=== PATIENT | female | born 1945 | race Caucasian/White ===

== ENCOUNTER 2017-05-30 12:03 | Emergency (ER) | payer MEDICARE ==
[2016-06-06 13:51] VITALS: BMI 20.2
[~2017-05-30 12:03] MED LIST: ACETAMINOPHEN500 M1 PO; ADVAIR HFA [SP]12 GM INH; ALEVE220 MG PO; ATARAX 25 MG TA25 MG PO; BACTRIM DS TABL1 TAB PO; BENADRYL 2% CRE30 GM TOPICAL; CALMOSEPTINE OI71 GM TOPICAL; CELEXA20 MG PO; CELEXA40 MG PO; DEXAMETHASONE4 MG/ML IV; DIFLUCAN100 MG PO; DILAUDID 012 MG/30 M IV; DURAGESIC1 PATCH .7 TRANSDERM; GRANIX300 MCG/0. SC; HYDROCODON-ACE1 EAC7 PO; IBUPROFEN600 MG PO; IPRAT-ALBUT 0.5-3 ML UPD; K-DUR20 MEQ PO; KLONOPIN1 MG PO; LEVAQUIN500 MG PO; LOVENOX40 MG/0.4 SC; NORVASC5 MG PO; NYSTATIN ORAL SU5 ML PO; PHENERGAN25 M1 PO; PREDNISONE20 MG PO; PROTONIX40 MG PO; SPIRIVA18 MCG INH; SYMBICORT 16010.2 GM INH; TUDORZA PRESS400 MCG INH; XANAX0.25 MG PO
== END 2017-05-30 15:20 | disposition home or self-care (01) ==
LOC: D.CT 12:03 → D.ER 12:03 → EDSTATUS 14:00 → D.CT 14:00 → D.ER 15:20
DX: R06.00 Dyspnea, unspecified (principal); R42 Dizziness and giddiness; R51 Headache; J44.9 Chronic obstructive pulmonary disease, unspecified

== ENCOUNTER 2018-04-25 05:12 | Inpatient (IN) | payer MEDICARE ==
[~2018-04-25] VITALS: Ht 162.6 cm; Wt 63.6 kg
--- NOTE | ~2018-04-25 | OP ---
PATIENT NAME: BARTOLO TAFOYA MEDICAL RECORD: [id number] :44 LOCATION:D.MS Monique2227 ADMISSION DATE:04/29/18 SURGEON: ARETHA FORTE MD DATE OF OPERATION: 04/25/2018 PREOPERATIVE DIAGNOSIS: Lumbar spinal stenosis at left L3-L4 and L4-L5. PROCEDURE: Left L3-L4 and L4-L5 lumbar laminotomy, foraminotomy and medial facetectomy. DESCRIPTION AND TECHNIQUE: After induction of general endotracheal anesthesia, the patient was rolled prone on a Huey frame. The lumbar spine was prepped and draped in usual sterile fashion. Fluoroscopic x-ray and spinal needle localized the L3-L4 interspace on the left side. A stab incision was carried out with #11 blade. A METRx retractor was advanced at the L3-L4 interspace on the left side. The level was confirmed with fluoroscopic x-ray. A microscope and Midas Heri drill were used to perform laminotomy, medial facetectomy and foraminotomy at L3-L4 on the left. Hypertrophied ligamentum flavum was removed with Cloward rongeurs. Next, the retractor was directed inferiorly to the L4-L5 interspace. A microscope and Midas Heri drill were used for laminotomy, medial facetectomy and foraminotomy at L4-L5 on the left side. Hypertrophied ligamentum flavum was removed with Cloward rongeurs. Following this, the foraminotomies were carried out with a Cloward rongeur. Hypertrophied ligamentum flavum was removed with Cloward rongeurs. The dura was decompressed well. Meticulous hemostasis was maintained throughout the wound. The wound was irrigated with copious amounts of Ancef irrigant solution. The fascia was closed with 2-0 Vicryl suture, the subdermal layer was closed with 3-0 Vicryl suture. The skin was closed with mulu. A sterile dressing was applied to the wound. The patient was awakened in good condition and taken to recovery. All counts were reported as correct. Estimated blood loss was minimal. Edited for date of surgery; EDMOND 06/16/18 TRANSINT:[id number] Voice Confirmation ID: [id number] DOCUMENT ID: [id number] ARETHA FORTE MD at 4751 CC: [id number] DICTATION DATE: 05/29/181939 COMMUNICATION AND OUTREACH MANAGER: 05/30/18 0705 DIS IN 05/02/18 [place] [id number] [place] [id number]
--- NOTE | ~2018-04-25 | OP ---
PATIENT NAME: BARTOLO TAFOYA MEDICAL RECORD: [id number] :44 LOCATION:D.MS Monique2227 ADMISSION DATE:04/29/18 SURGEON: ARETHA NAIK MD DATE OF OPERATION: 04/29/2018 PREOPERATIVE DIAGNOSIS: Right foot drop, recurrent epidural fluid collection with possible epidural abscess, wound infection. POSTOPERATIVE DIAGNOSIS: PROCEDURE: Exploration of Lumbar laminectomy wound with redo right L3-L4 and 5, lumbar laminectomy. SURGEON: Aretha Naik MD DESCRIPTION AND TECHNIQUE: After induction of general endotracheal anesthesia, the patient was rolled prone on a Huey frame. Lumbar spine was prepped and draped in usual sterile fashion. Fluoroscopic x-ray and spinal needle localized at L3-L4 interspace. Previous incision was opened with a Metzenbaum scissors. The fascia was also opened with Metzenbaum scissors. The L3-L4 interspace was confirmed with fluoroscopic x-ray. A Midas Heri drill was used to extend the previous laminotomy and foraminotomy and laminectomy was carried out at L3 and then at L4 and then also at L5. The lateral gutters were completely cleared of any residual ligamentum flavum. There was an epidural collection of soft tissue appeared to be granulation tissue. This was cultured and sent to microbiology for culture. Following this, the dura was decompressed well. Foraminotomies were carried out at L3-L4 and L4-L5 on the right. The fascia was closed with 2-0 Vicryl suture. The subdermal layer closed with 3-0 Vicryl suture. The skin was closed with mulu. A sterile dressing was applied to the wound. The patient was awakened in good condition and taken to recovery. All counts were reported as correct. Estimated blood loss was minimal. Edited for surgery date; EDMOND 06/16/18 TRANSINT:[id number] Voice Confirmation ID: [id number] DOCUMENT ID: [id number] ARETHA NAIK MD at 1802 CC: [id number] DICTATION DATE: 05/29/181936 INTERACTIVE MEDIA MARKETING DIRECTOR: 05/30/18 0645 DIS IN 05/02/18 [place] [address]
[2018-04-25 06:21] LABS: CALC OSMOLALITY 277 mosm/kg (275-300); CARBON DIOXIDE 30.4 mmol/L (21.0-32.0); CHLORIDE - SERUM 104 mmol/L (98-107); CREATININE - SERUM 0.7 mg/dL (0.6-1.3); GLUCOSE 84 mg/dL (74-106); POTASSIUM - SERUM 3.8 mmol/L (3.5-5.1); SODIUM 140 mmol/L (136-145); UREA NITROGEN 13 mg/dL (7-18); eGFR NON AFRICAN AMERICAN 87 mL/min (90-120)
[2018-04-25 06:26] VITALS: BP 139/69; BMI 24.0
[2018-04-25] MEDS ORDERED: CLONAZEPAM1 MG/TAB PO (07:04)
[2018-04-25] MEDS ORDERED: KEFLEX250 MG PO (07:06)
[2018-04-25] MEDS ORDERED: ZOLOFT100 MG PO (07:07)
[2018-04-25] MEDS ORDERED: DULERA 200 MCG8.8 GM INH (07:07)
[2018-04-25 18:26] VITALS: BP 110/63; Ht 162.6 cm; Wt 63.6 kg
[2018-04-25 18:36] LABS: BASOPHILS 0.3 % (0-2); EOSINOPHILS 2.1 % (0-7); HEMATOCRIT 43.1 % (36.0-48.0); HEMOGLOBIN 13.8 g/dL (12-16); IMMATURE GRANULOCYTES 0.5 % (0-5); LYMPHOCYTES 26.1 % (15-50); MCH 28.5 pg (26.0-34.0); MEAN PLATELET VOLUME 11.7 fL (7.4-10.4); MONOCYTES 7.7 % (2-11); NEUTROPHILS 63.3 % (40-80); PLATELET COUNT 168 10x3/uL (130-400); RBC 4.84 10x6/uL (4.00-5.40); RDW 15.3 % (11.5-14.5); WBC 7.7 10x3/uL (4.8-10.8)
[2018-04-25 21:17] VITALS: BP 123/66
[2018-04-26 04:50] VITALS: BP 93/54
[2018-04-26 08:28] VITALS: BP 125/58
[2018-04-26 12:36] VITALS: BP 122/62
[2018-04-26 16:00] VITALS: BP 121/72
[2018-04-26 22:37] VITALS: BP 130/68
[2018-04-27 04:06] VITALS: BP 136/84
[2018-04-27 08:23] VITALS: BP 141/58
[2018-04-27] MEDS ORDERED: PERCOCET 10/3251 TA1 PO (11:39)
[2018-04-27 12:33] VITALS: BP 126/74
[2018-04-27 16:05] VITALS: BP 125/70
[2018-04-27 22:41] VITALS: BP 137/75
[2018-04-28 03:58] VITALS: BP 145/74
[2018-04-28 08:48] VITALS: BP 120/85
[2018-04-28 13:28] VITALS: BP 139/73
[2018-04-28 16:51] VITALS: BP 140/59
[2018-04-28 19:47] VITALS: BP 162/98
[2018-04-28 23:14] VITALS: BP 153/84
[2018-04-29 03:27] VITALS: BP 154/77
[2018-04-29 07:58] VITALS: BP 146/77
[2018-04-29 12:23] VITALS: BP 131/65
[2018-04-29 15:54] VITALS: BP 141/57
[2018-04-29 20:13] VITALS: BP 119/49
[2018-04-30 00:30] VITALS: BP 139/72
[2018-04-30 03:42] VITALS: BP 130/79
[2018-04-30 07:54] VITALS: BP 147/82
[2018-04-30 12:18] VITALS: BP 144/61
[2018-04-30 15:44] VITALS: BP 142/61
[2018-04-30 20:04] VITALS: BP 112/40
[2018-05-01 01:23] VITALS: BP 124/64
[2018-05-01 04:10] VITALS: BP 134/74
[2018-05-01 09:31] VITALS: BP 137/71
[2018-05-01 16:44] VITALS: BP 137/64
[2018-05-02 06:50] VITALS: BP 159/86
[2018-05-02 09:01] VITALS: BP 127/61
[2018-05-02 13:45] VITALS: BP 148/94
[2018-05-02] MEDS ORDERED: MEDROL DOSE PACK4 MG PO (15:29)
[2018-05-02 16:09] VITALS: BP 132/77
== END 2018-05-02 16:24 | DRG 941 ==
LOC: D.MS 05:12 → D.OPS 05:12 → D.PAN 07:30 → D.MS 16:41 → D.OPS 16:42 → D.MS 16:42 → OBSVTIME 16:42 → D.OPS 04-29 08:32 → D.MS 04-29 08:32
PROVIDERS: Anesthesiology; Neurological Surgery
PROC: 01NB0ZZ Release Lumbar Nerve, Open Approach (ICD-10-PCS; principal; 2018-04-25 07:30)
PROC: 01NB0ZZ Release Lumbar Nerve, Open Approach (ICD-10-PCS; 2018-04-29)
DX: G89.18 Other acute postprocedural pain (principal); M79.661 Pain in right lower leg; M62.830 Muscle spasm of back; M48.061 Spinal stenosis, lumbar region without neurogenic claudication; M21.371 Foot drop, right foot

== ENCOUNTER 2018-05-02 14:35 | Inpatient (IN) | payer MEDICARE ==
[~2018-05-02] VITALS: Ht 162.6 cm; Wt 64.0 kg
--- NOTE | ~2018-05-02 | RHP ---
PATIENT: BARTOLO TAFOYA MEDICAL RECORD: [id number] ACCOUNT: [id number] LOCATION:[facility]1117 : 44 ADMISSION DATE: 05/02/18 REHABILITATION HISTORY AND PHYSICAL EXAMINATION POST ADMISSION PHYSICIAN EXAMINATION ADMITTING DIAGNOSES: Spinal stenosis of L3-L4, L4-L5 and lumbar radiculopathy HISTORY OF PRESENT ILLNESS: The patient is a 72-year-old female patient admitted to inpatient rehab for neurological condition, spinal stenosis with lumbar radiculopathy. She is status post kyphoplasty at T11, L4-L5 on 04/11/2018. She returned to the office for followup and had increasing pain, weakness and paresthesias in both legs that were not improved and was progressing daily. Pain was exacerbated by standing. X-rays were positive for spinal stenosis at L3-L4 and L4-L5 with radiculopathy on 04/25/2018. She went to the OR for a lumbar laminectomy. Postop, she was unable to work with physical therapy due to irretractable pain, muscle spasms and numbness of her right foot. MRI of her lumbar spine showed extensive multilevel degenerative changes in the lumbar spine, most pronounced at L3-L4 and L4-L5 where there was severe thecal sac narrowing, gujmwinm-rg-uyysua neural foraminal narrowing as detailed above, interval worsening of the thecal sac, narrowing since previous exam, remote L4 compression deformity and retropulsion of bone contributing to a thecal sac narrowing. On 04/29/2018, she was taken back to the OR for a right L3-L4 lumbar laminectomy. Currently, she has continued to complain of severe pain and muscle spasm. She has been on IV Decadron 8 mg every 6 hours, muscle relaxers, p.o. pain meds and a Duragesic patch. She is eezwqbtp-yq-enj assist for ADLs and mobility. She is max assist for qwm-jw-cojiu and qwk-hn-ebfby. She ambulated 2 feet with PT, using a gait belt, rolling walker and 75% assist due to poor balance. Previously, she was independent with ADLs and mobility. She lives with her and is highly motivated to regain her strength and hopefully return back home at her prior level of functioning. COMORBIDITIES: In this patient include status post lumbar laminectomy, irretractable back pain, paresthesias, weakness, numbness, liver mets, pelvic mass, neuropathy, COPD, asthma, home O2 dependence, fatigue, generalized weakness, stress incontinence, depression, anxiety, osteoporosis and gastroesophageal reflux disease. PAST MEDICAL HISTORY: Significant for CVA, numbness, vertigo, weakness, asthma, COPD, home O2 dependent, stress incontinence, history of UTI, depression and anxiety. PAST SURGICAL HISTORY: Includes , nose surgery, knee surgery and laminectomy times 2. ALLERGIES: No known drug allergies. CURRENT MEDICATIONS: She is on a tapering dose of steroids. She is on Zoloft 100 mg daily, polyethylene glycol 17 grams in 8 ounce of water daily, [place] 5/325 one tab every 6 hours p.r.n., Advair HFA 2 puffs b.i.d., clonazepam 1 mg b.i.d., Keflex 250 mg every 6 hours and Tylenol 500 mg every 4 hours p.r.n. headache. HABITS: No alcohol or tobacco use. HISTORY AND PHYSICAL [id number] BARTOLO TAFOYA FAMILY HISTORY: Noncontributory. SOCIAL HISTORY: The patient hopes to return back home and get back to her prior level of function. REVIEW OF SYSTEMS: GENERAL: Denies cold, cough, or congestion. CARDIOVASCULAR: Denies any chest pain. LUNGS: Denies any shortness of breath. PHYSICAL EXAMINATION: VITAL SIGNS: Stable, afebrile. GENERAL: Elderly female, in no acute distress, alert upon exam. HEENT: Normocephalic and atraumatic. Mucosa moist. NECK: Supple, with no lymphadenopathy. LUNGS: Clear at this time. HEART: Regular rate and rhythm. ABDOMEN: Benign. EXTREMITIES: He does have noted weakness and pain with movement of her lower extremities. NEUROLOGIC: As above. LABORATORY DATA: Her white count is 18.5 secondary to steroids. Her hemoglobin is 14.6, hematocrit is 45.3 and platelet count is 189. Sodium 140, potassium 3.9, BUN and creatinine of 19 and 0.6 and blood sugar is noted to be 85. ASSESSMENT: This 72-year-old female patient admitted to rehab with a working diagnosis of a spinal cord dysfunction, status post laminectomy. The patient has potential to make improvement. We instituted the following multidisciplinary therapies including, but not limited to physical, occupational, respiratory, speech, nutritional services, prosthetics and orthotics. Given her complex medical condition and risks for more complications, rehabilitation services cannot be provided at a low level of care such as intermediate facility. PLAN: 1. Admit to [facility] for intensive inpatient therapy to include the following disciplines: A. Physical therapy to improve gait, all transfer skills and bed mobility to a modified independent level. B. Occupational therapy to a modified independent level. C. Case management to assist with discharge planning and placement options. D. Nutrition to assist with nutritional needs. E. Rehabilitation nursing to assist in monitoring the patient's underlying medical conditions and to assist with any type of bowel or bladder management. 2. The patient's current medication and medical care will be continued. 3. Placed on standard fall precautions. 4. The patient's estimated length of stay is approximately 7 to 10 days. 5. We will discuss this patient during care team staff meeting this week. TRANSINT:[id number] Voice Confirmation ID: [id number] DOCUMENT ID: [id number] KARIS notes whether there has been none or any medical/functional change since admission: HISTORY AND PHYSICAL [id number] BARTOLO TAFOYA - No change sine the PAS KARIS attests patient continues to be appropriate for IRF: - Remains appropriate for the IRF DAX KAM MD at 1757 CC: [id number] DICTATION DATE: 05/03/18 1727 PROFESSOR OF VISUAL ARTS: 05/03/18 1828 DIS IN 05/12/18 [facility] [address] [place] [address]
[~2018-05-02 14:35] MED LIST changes: +CLONAZEPAM1 MG/TAB PO; +DULERA 200 MCG8.8 GM INH; +KEFLEX250 MG PO; +PERCOCET 10/3251 TA1 PO; +ZOLOFT100 MG PO
[2018-05-02] MEDS ORDERED: MEDROL DOSE PACK4 MG PO (15:29)
[2018-05-02 17:52] VITALS: BP 144/74; BMI 24.2
[2018-05-02 19:00] VITALS: BP 144/74
[2018-05-03 07:03] LABS: BASOPHILS 0.2 % (0-2); EOSINOPHILS 0 % (0-7); HEMATOCRIT 45.3 % (36.0-48.0); HEMOGLOBIN 14.6 g/dL (12-16); IMMATURE GRANULOCYTES 5.3 % (0-5); LYMPHOCYTES 5.3 % (15-50); MCH 28.6 pg (26.0-34.0); MCHC 32.2 g/dL (31.0-37.0); MCV 88.8 fL (80.0-100.0); MEAN PLATELET VOLUME 11.1 fL (7.4-10.4); MONOCYTES 13.1 % (2-11); NEUTROPHILS 76.1 % (40-80); PLATELET COUNT 189 10x3/uL (130-400); RDW 15.4 % (11.5-14.5); WBC 18.5 10x3/uL (4.8-10.8)
[2018-05-03 07:12] LABS: CALC OSMOLALITY 279 mosm/kg (275-300); CALCIUM 8.4 mg/dL (8.5-10.1); CARBON DIOXIDE 37.2 mmol/L (21.0-32.0); CHLORIDE - SERUM 101 mmol/L (98-107); CREATININE - SERUM 0.6 mg/dL (0.6-1.3); GLUCOSE 85 mg/dL (74-106); POTASSIUM - SERUM 3.9 mmol/L (3.5-5.1); SODIUM 140 mmol/L (136-145); UREA NITROGEN 19 mg/dL (7-18); eGFR NON AFRICAN AMERICAN > 90 mL/min (90-120)
[2018-05-03 13:30] VITALS: Ht 162.6 cm; Wt 64.0 kg
[2018-05-04 01:13] VITALS: BP 115/60
[2018-05-04 08:00] VITALS: BP 108/68
[2018-05-04 21:00] VITALS: BP 114/62
[2018-05-05 07:28] LABS: BASOPHILS 0.6 % (0-2); EOSINOPHILS 0.2 % (0-7); HEMATOCRIT 43.4 % (36.0-48.0); HEMOGLOBIN 13.6 g/dL (12-16); LYMPHOCYTES 9.4 % (15-50); MCHC 31.3 g/dL (31.0-37.0); MCV 89.5 fL (80.0-100.0); MEAN PLATELET VOLUME 10.7 fL (7.4-10.4); MONOCYTES 6.7 % (2-11); NEUTROPHILS 72.1 % (40-80); RBC 4.85 10x6/uL (4.00-5.40); RDW 15.9 % (11.5-14.5); WBC 12.9 10x3/uL (4.8-10.8)
[2018-05-05 07:34] LABS: PLATELET COUNT 150 10x3/uL (130-400)
[2018-05-05 07:45] LABS: CALC OSMOLALITY 279 mosm/kg (275-300); CALCIUM 8.6 mg/dL (8.5-10.1); CARBON DIOXIDE 35.7 mmol/L (21.0-32.0); CHLORIDE - SERUM 100 mmol/L (98-107); CREATININE - SERUM 0.6 mg/dL (0.6-1.3); GLUCOSE 104 mg/dL (74-106); POTASSIUM - SERUM 4.4 mmol/L (3.5-5.1); SODIUM 140 mmol/L (136-145); UREA NITROGEN 16 mg/dL (7-18); eGFR NON AFRICAN AMERICAN > 90 mL/min (90-120)
[2018-05-05 08:23] VITALS: BP 142/51
[2018-05-05 19:00] VITALS: BP 132/60
[2018-05-06 08:28] VITALS: BP 112/58
[2018-05-06 19:00] VITALS: BP 144/79
[2018-05-07 07:00] LABS: BASOPHILS 0.2 % (0-2); EOSINOPHILS 0.7 % (0-7); HEMATOCRIT 43.5 % (36.0-48.0); HEMOGLOBIN 13.7 g/dL (12-16); LYMPHOCYTES 8.8 % (15-50); MCH 28.4 pg (26.0-34.0); MCHC 31.5 g/dL (31.0-37.0); MCV 90.1 fL (80.0-100.0); MEAN PLATELET VOLUME 10.3 fL (7.4-10.4); MONOCYTES 6.8 % (2-11); NEUTROPHILS 76.5 % (40-80); PLATELET COUNT 144 10x3/uL (130-400); RBC 4.83 10x6/uL (4.00-5.40); RDW 16.2 % (11.5-14.5)
[2018-05-07 07:04] LABS: WBC 16.5 10x3/uL (4.8-10.8)
[2018-05-07 07:25] LABS: CALC OSMOLALITY 281 mosm/kg (275-300); CALCIUM 8.5 mg/dL (8.5-10.1); CARBON DIOXIDE 36.5 mmol/L (21.0-32.0); CHLORIDE - SERUM 101 mmol/L (98-107); CREATININE - SERUM 0.6 mg/dL (0.6-1.3); GLUCOSE 105 mg/dL (74-106); POTASSIUM - SERUM 4.2 mmol/L (3.5-5.1); SODIUM 141 mmol/L (136-145); UREA NITROGEN 15 mg/dL (7-18); eGFR NON AFRICAN AMERICAN > 90 mL/min (90-120)
[2018-05-07 08:19] VITALS: BP 130/61
[2018-05-07 19:00] VITALS: BP 134/62
[2018-05-08 08:25] VITALS: BP 136/64
[2018-05-08 19:00] VITALS: BP 121/75
[2018-05-09 06:16] LABS: BASOPHILS 0.1 % (0-2); EOSINOPHILS 1.4 % (0-7); HEMATOCRIT 41.7 % (36.0-48.0); HEMOGLOBIN 12.8 g/dL (12-16); IMMATURE GRANULOCYTES 6.2 % (0-5); LYMPHOCYTES 7.4 % (15-50); MCH 27.9 pg (26.0-34.0); MCHC 30.7 g/dL (31.0-37.0); MEAN PLATELET VOLUME 10.9 fL (7.4-10.4); MONOCYTES 7.6 % (2-11); NEUTROPHILS 77.3 % (40-80); PLATELET COUNT 142 10x3/uL (130-400); RBC 4.58 10x6/uL (4.00-5.40); RDW 16.7 % (11.5-14.5); WBC 13.9 10x3/uL (4.8-10.8)
[2018-05-09 07:05] LABS: CALC OSMOLALITY 291 mosm/kg (275-300); CALCIUM 8.6 mg/dL (8.5-10.1); CARBON DIOXIDE 34.3 mmol/L (21.0-32.0); CHLORIDE - SERUM 103 mmol/L (98-107); CREATININE - SERUM 0.6 mg/dL (0.6-1.3); GLUCOSE 110 mg/dL (74-106); POTASSIUM - SERUM 4.1 mmol/L (3.5-5.1); SODIUM 144 mmol/L (136-145); eGFR NON AFRICAN AMERICAN > 90 mL/min (90-120)
[2018-05-09 07:07] LABS: UREA NITROGEN 24 mg/dL (7-18)
[2018-05-09 08:14] VITALS: BP 121/68
[2018-05-09 19:00] VITALS: BP 137/63
[2018-05-10 08:00] VITALS: BP 121/70
[2018-05-10 19:58] VITALS: BP 133/75
[2018-05-11 10:07] VITALS: BP 118/70
[2018-05-11 20:00] VITALS: BP 109/76
[2018-05-12 07:06] LABS: BASOPHILS 0.2 % (0-2); EOSINOPHILS 2.4 % (0-7); HEMATOCRIT 40.5 % (36.0-48.0); HEMOGLOBIN 12.6 g/dL (12-16); IMMATURE GRANULOCYTES 6.1 % (0-5); LYMPHOCYTES 13.6 % (15-50); MCH 28.6 pg (26.0-34.0); MCHC 31.1 g/dL (31.0-37.0); MCV 91.8 fL (80.0-100.0); MONOCYTES 7.3 % (2-11); NEUTROPHILS 70.4 % (40-80); PLATELET COUNT 140 10x3/uL (130-400); RBC 4.41 10x6/uL (4.00-5.40); RDW 16.3 % (11.5-14.5); WBC 6.2 10x3/uL (4.8-10.8)
[2018-05-12 07:23] LABS: CALC OSMOLALITY 281 mosm/kg (275-300); CALCIUM 8.3 mg/dL (8.5-10.1); CARBON DIOXIDE 30.7 mmol/L (21.0-32.0); CHLORIDE - SERUM 104 mmol/L (98-107); CREATININE - SERUM 0.6 mg/dL (0.6-1.3); GLUCOSE 112 mg/dL (74-106); POTASSIUM - SERUM 3.3 mmol/L (3.5-5.1); SODIUM 142 mmol/L (136-145); UREA NITROGEN 7 mg/dL (7-18); eGFR NON AFRICAN AMERICAN > 90 mL/min (90-120)
[2018-05-12 08:00] VITALS: BP 118/71
[2018-05-12 19:00] VITALS: BP 105/67
[2018-05-12] MEDS ORDERED: ROBAXIN500 MG PO ×2 (19:16→23:02)
[2018-05-12] MEDS ORDERED: VOLTAREN100 GM TOPICAL (19:16)
[2018-05-12] MEDS ORDERED: NEURONTIN 300300 MG PO (19:17)
[2018-05-12] MEDS ORDERED: MELATONIN 3 MG1 TAB PO ×2 (19:18→23:00)
[2018-05-12] MEDS ORDERED: PERCOCET 10/3251 TA1 PO (19:19)
[2018-05-12] MEDS ORDERED: FLORAJEN3 CAPS460 MG PO (22:59)
[2018-05-12] MEDS ORDERED: K-DUR20 MEQ PO (23:03)
[2018-05-12] MEDS ORDERED: IMODIUM2 MG PO (23:08)
[2018-05-12] MEDS ORDERED: MIRALAX17 GM PO (23:56)
[2018-05-13] MEDS ORDERED: CLEOCIN HCL150 MG PO (00:03)
[2018-05-13] MEDS ORDERED: KLONOPIN0.5 MG PO (00:04)
== END 2018-05-12 21:45 | disposition short-term general hospital (02) | DRG 560 ==
LOC: D.REHAB 14:35 → D.SDCHOLD 05-06 11:25 → D.REHAB 05-06 11:30
PROVIDERS: Emergency Medicine
DX: Z47.89 Encounter for other orthopedic aftercare (principal); C78.7 Secondary malignant neoplasm of liver and intrahepatic bile duct; M54.16 Radiculopathy, lumbar region; M48.061 Spinal stenosis, lumbar region without neurogenic claudication; Z98.890 Other specified postprocedural states; R20.2 Paresthesia of skin; R53.1 Weakness; R20.0 Anesthesia of skin; R19.00 Intra-abdominal and pelvic swelling, mass and lump, unspecified site; G62.9 Polyneuropathy, unspecified; J44.9 Chronic obstructive pulmonary disease, unspecified; Z99.81 Dependence on supplemental oxygen; R53.83 Other fatigue; N39.3 Stress incontinence (female) (male); F41.8 Other specified anxiety disorders; M81.0 Age-related osteoporosis without current pathological fracture; K21.9 Gastro-esophageal reflux disease without esophagitis; M21.371 Foot drop, right foot

== ENCOUNTER 2018-05-12 21:26 | Inpatient (IN) | payer MEDICARE ==
[~2018-05-12] VITALS: Ht 162.6 cm; Wt 63.5 kg
--- NOTE | ~2018-05-12 | OP ---
PATIENT NAME: BARTOLO TAFOYA MEDICAL RECORD: [id number] :44 LOCATION:D.MS Monique2238 ADMISSION DATE:05/12/18 SURGEON: ARETHA FORTE MD DATE OF OPERATION: 05/16/2018 PREOPERATIVE DIAGNOSES: Epidural mass at L3-L4 and lumbar spinal stenosis at L3, L4 and L5 with foraminal stenosis. POSTOPERATIVE DIAGNOSIS: Epidural mass at L3-L4 and lumbar spinal stenosis at L3, L4 and L5 with foraminal stenosis. PROCEDURES: Lumbar laminectomy at L3, L4, and L5 with sublaminar decompression and foraminotomies at L3-L4, L4-L5, and L5, culture of epidural fluid collection. DESCRIPTION AND TECHNIQUE: After induction of general endotracheal anesthesia, the patient's L3-L4 interspace was confirmed with fluoroscopic x-ray and a spinal needle. The previous incision was incised with Metzenbaum scissors and then the fascia was incised with Bovie cautery. Subperiosteal dissection was used to expose the spinous processes and laminae of L3, L4, and L5. The L3, L4 and L5 was exposed was confirmed with fluoroscopic x-ray. A Midas-Heri drill and microscope was used to do a formal laminectomy at L3, L4 and L5 on the right side. There is an epidural mass, which appeared to be granulation tissue, was cultured and was removed with microdissection with Cloward rongeurs and microinstruments. Following this, the dura was decompressed well at L3, L4, and L5, sublaminar decompression took place on the opposite side after undermining the spinous processes at L4 and L5. The dura appeared to have decompressed well. Meticulous hemostasis was maintained throughout. The wound was irrigated with copious amounts of Ancef irrigant solution. The fascia was closed with 2-0 Vicryl suture. Subdermal layer was closed with 3-0 Vicryl suture. Skin was closed with mulu. A sterile dressing was applied to the wound. The patient was awakened in good condition and taken to the recovery. All counts were reported as correct. Estimated blood loss was minimal. TRANSINT:[id number] Voice Confirmation ID: [id number] DOCUMENT ID: [id number] ARETHA FORTE MD at 0952 CC: [id number] DICTATION DATE: 05/16/181953 SENIOR TECH MANUFACTURING ENGINEERING: 05/16/18 2334 ADM IN [facility] [address] [place] [address]
[~2018-05-12 21:26] MED LIST changes: +MEDROL DOSE PACK4 MG PO; +MELATONIN 3 MG1 TAB PO; +NEURONTIN 300300 MG PO; +ROBAXIN500 MG PO; +VOLTAREN100 GM TOPICAL
[2018-05-12] MEDS ORDERED: FLORAJEN3 CAPS460 MG PO (22:59)
[2018-05-12] MEDS ORDERED: MELATONIN 3 MG1 TAB PO (23:00)
[2018-05-12] MEDS ORDERED: ROBAXIN500 MG PO (23:02)
[2018-05-12] MEDS ORDERED: K-DUR20 MEQ PO (23:03)
[2018-05-12] MEDS ORDERED: IMODIUM2 MG PO (23:08)
[2018-05-12] MEDS ORDERED: MIRALAX17 GM PO (23:56)
[2018-05-13] MEDS ORDERED: CLEOCIN HCL150 MG PO (00:03)
[2018-05-13] MEDS ORDERED: KLONOPIN0.5 MG PO (00:04)
[2018-05-13 02:02] VITALS: BP 107/50; BMI 24.0
[2018-05-13 04:58] VITALS: BP 132/60
[2018-05-13 08:39] VITALS: BP 131/55
[2018-05-13 09:12] LABS: BASOPHILS 0.1 % (0-2); EOSINOPHILS 2.1 % (0-7); HEMATOCRIT 38.1 % (36.0-48.0); HEMOGLOBIN 11.7 g/dL (12-16); IMMATURE GRANULOCYTES 3.5 % (0-5); LYMPHOCYTES 11.2 % (15-50); MCHC 30.7 g/dL (31.0-37.0); MCV 91.1 fL (80.0-100.0); MEAN PLATELET VOLUME 10.2 fL (7.4-10.4); MONOCYTES 8.3 % (2-11); NEUTROPHILS 74.8 % (40-80); PLATELET COUNT 129 10x3/uL (130-400); RBC 4.18 10x6/uL (4.00-5.40)
[2018-05-13 10:43] LABS: ALBUMIN 2.8 g/dL (3.4-5.0); ALKALINE PHOSPHATASE 62 U/L (46-116); ALT (SGPT) 49 U/L (10-68); BILIRUBIN - TOTAL 0.26 mg/dL (0.2-1.3); CALC OSMOLALITY 285 mosm/kg (275-300); CALCIUM 8.1 mg/dL (8.5-10.1); CARBON DIOXIDE 34.9 mmol/L (21.0-32.0); CHLORIDE - SERUM 105 mmol/L (98-107); CREATININE - SERUM 0.6 mg/dL (0.6-1.3); GLUCOSE 88 mg/dL (74-106); PROTEIN - SERUM 5.8 g/dL (6.4-8.2); SODIUM 145 mmol/L (136-145); UREA NITROGEN 8 mg/dL (7-18); eGFR NON AFRICAN AMERICAN > 90 mL/min (90-120)
[2018-05-13 10:45] LABS: POTASSIUM - SERUM 3.9 mmol/L (3.5-5.1)
[2018-05-13 13:02] VITALS: BP 132/61
[2018-05-13 15:21] VITALS: Ht 162.6 cm; Wt 63.5 kg
[2018-05-13 16:37] VITALS: BP 130/60
[2018-05-13 23:19] VITALS: BP 148/78
[2018-05-14 03:40] VITALS: BP 143/64
[2018-05-14 06:15] LABS: BASOPHILS 0.2 % (0-2); HEMATOCRIT 35.8 % (36.0-48.0); HEMOGLOBIN 11.2 g/dL (12-16); IMMATURE GRANULOCYTES 2.7 % (0-5); LYMPHOCYTES 14.5 % (15-50); MCH 28.1 pg (26.0-34.0); MCHC 31.3 g/dL (31.0-37.0); MCV 89.7 fL (80.0-100.0); MEAN PLATELET VOLUME 9.8 fL (7.4-10.4); MONOCYTES 9.5 % (2-11); NEUTROPHILS 71.1 % (40-80); PLATELET COUNT 124 10x3/uL (130-400); RBC 3.99 10x6/uL (4.00-5.40); RDW 16.1 % (11.5-14.5)
[2018-05-14 06:39] LABS: WBC 5.9 10x3/uL (4.8-10.8)
[2018-05-14 06:55] LABS: ALBUMIN 2.6 g/dL (3.4-5.0); ALKALINE PHOSPHATASE 56 U/L (46-116); ALT (SGPT) 38 U/L (10-68); BILIRUBIN - TOTAL 0.24 mg/dL (0.2-1.3); CALC OSMOLALITY 288 mosm/kg (275-300); CALCIUM 8.5 mg/dL (8.5-10.1); CARBON DIOXIDE 32.4 mmol/L (21.0-32.0); CHLORIDE - SERUM 106 mmol/L (98-107); CREATININE - SERUM 0.6 mg/dL (0.6-1.3); GLUCOSE 120 mg/dL (74-106); POTASSIUM - SERUM 3.8 mmol/L (3.5-5.1); PROTEIN - SERUM 6.1 g/dL (6.4-8.2); SODIUM 145 mmol/L (136-145); UREA NITROGEN 9 mg/dL (7-18); eGFR NON AFRICAN AMERICAN > 90 mL/min (90-120)
[2018-05-14 08:04] VITALS: BP 133/73
[2018-05-14 13:24] VITALS: BP 130/61
[2018-05-14 16:40] VITALS: BP 132/75
[2018-05-14 20:32] VITALS: BP 146/69
[2018-05-15 00:38] VITALS: BP 127/68
[2018-05-15 04:49] VITALS: BP 132/69
[2018-05-15 06:45] LABS: BASOPHILS 0.4 % (0-2); EOSINOPHILS 2.3 % (0-7); HEMATOCRIT 38.5 % (36.0-48.0); IMMATURE GRANULOCYTES 3.9 % (0-5); LYMPHOCYTES 18.6 % (15-50); MCHC 31.2 g/dL (31.0-37.0); MCV 89.7 fL (80.0-100.0); MEAN PLATELET VOLUME 10.6 fL (7.4-10.4); MONOCYTES 9.1 % (2-11); NEUTROPHILS 65.7 % (40-80); PLATELET COUNT 144 10x3/uL (130-400); RBC 4.29 10x6/uL (4.00-5.40); RDW 16.3 % (11.5-14.5); WBC 5.2 10x3/uL (4.8-10.8)
[2018-05-15 07:23] LABS: ALBUMIN 2.9 g/dL (3.4-5.0); ALKALINE PHOSPHATASE 62 U/L (46-116); ALT (SGPT) 42 U/L (10-68); CALC OSMOLALITY 287 mosm/kg (275-300); CALCIUM 8.7 mg/dL (8.5-10.1); CARBON DIOXIDE 34.3 mmol/L (21.0-32.0); CHLORIDE - SERUM 106 mmol/L (98-107); CREATININE - SERUM 0.5 mg/dL (0.6-1.3); GLUCOSE 111 mg/dL (74-106); PROTEIN - SERUM 6.8 g/dL (6.4-8.2); SODIUM 145 mmol/L (136-145); UREA NITROGEN 8 mg/dL (7-18); eGFR NON AFRICAN AMERICAN > 90 mL/min (90-120)
[2018-05-15 09:14] VITALS: BP 132/72
[2018-05-15 12:19] VITALS: BP 107/77
[2018-05-15 16:17] VITALS: BP 164/62
[2018-05-15 21:29] VITALS: BP 139/66
[2018-05-16 00:14] VITALS: BP 156/64
[2018-05-16 04:36] VITALS: BP 124/65
[2018-05-16 06:21] LABS: BASOPHILS 0.2 % (0-2); EOSINOPHILS 2.2 % (0-7); HEMATOCRIT 40.1 % (36.0-48.0); HEMOGLOBIN 12.8 g/dL (12-16); IMMATURE GRANULOCYTES 2.9 % (0-5); LYMPHOCYTES 14.4 % (15-50); MCH 28.4 pg (26.0-34.0); MCHC 31.9 g/dL (31.0-37.0); MCV 88.9 fL (80.0-100.0); MEAN PLATELET VOLUME 10.3 fL (7.4-10.4); MONOCYTES 10.5 % (2-11); NEUTROPHILS 69.8 % (40-80); PLATELET COUNT 145 10x3/uL (130-400); RBC 4.51 10x6/uL (4.00-5.40); RDW 16.2 % (11.5-14.5); WBC 5.8 10x3/uL (4.8-10.8)
[2018-05-16 06:43] LABS: ALKALINE PHOSPHATASE 68 U/L (46-116); ALT (SGPT) 39 U/L (10-68); CALC OSMOLALITY 286 mosm/kg (275-300); CALCIUM 8.8 mg/dL (8.5-10.1); CARBON DIOXIDE 32.6 mmol/L (21.0-32.0); CHLORIDE - SERUM 105 mmol/L (98-107); CREATININE - SERUM 0.4 mg/dL (0.6-1.3); GLUCOSE 134 mg/dL (74-106); POTASSIUM - SERUM 4.3 mmol/L (3.5-5.1); SODIUM 144 mmol/L (136-145); UREA NITROGEN 8 mg/dL (7-18); eGFR NON AFRICAN AMERICAN > 90 mL/min (90-120)
[2018-05-16 08:54] VITALS: BP 140/69
[2018-05-16 20:00] VITALS: BP 135/60
[2018-05-16 20:45] VITALS: BP 135/60
[2018-05-17] VITALS: BP 111/71
[2018-05-17 04:00] VITALS: BP 127/55
[2018-05-17 05:23] LABS: BASOPHILS 0.1 % (0-2); EOSINOPHILS 0.1 % (0-7); HEMOGLOBIN 12.4 g/dL (12-16); IMMATURE GRANULOCYTES 1.4 % (0-5); LYMPHOCYTES 9.5 % (15-50); MCH 28.5 pg (26.0-34.0); MCHC 31.8 g/dL (31.0-37.0); MCV 89.7 fL (80.0-100.0); MEAN PLATELET VOLUME 10.3 fL (7.4-10.4); MONOCYTES 5.2 % (2-11); NEUTROPHILS 83.7 % (40-80); PLATELET COUNT 173 10x3/uL (130-400); RBC 4.35 10x6/uL (4.00-5.40); RDW 16.1 % (11.5-14.5)
[2018-05-17 05:58] LABS: ALBUMIN 3.1 g/dL (3.4-5.0); BILIRUBIN - TOTAL 0.36 mg/dL (0.2-1.3); CALCIUM 8.5 mg/dL (8.5-10.1); CARBON DIOXIDE 30.1 mmol/L (21.0-32.0); CREATININE - SERUM 0.8 mg/dL (0.6-1.3); POTASSIUM - SERUM 4.1 mmol/L (3.5-5.1); PROTEIN - SERUM 7.1 g/dL (6.4-8.2)
[2018-05-17 09:06] VITALS: BP 108/54
[2018-05-17 11:15] VITALS: BP 119/57
[2018-05-17 16:11] VITALS: BP 140/43
[2018-05-17 21:27] VITALS: BP 121/44
[2018-05-18 04:00] VITALS: BP 123/57
[2018-05-18 05:47] LABS: BASOPHILS 0.1 % (0-2); EOSINOPHILS 2.5 % (0-7); HEMATOCRIT 33.5 % (36.0-48.0); HEMOGLOBIN 10.4 g/dL (12-16); IMMATURE GRANULOCYTES 1.4 % (0-5); LYMPHOCYTES 13.2 % (15-50); MCH 27.9 pg (26.0-34.0); MCV 89.8 fL (80.0-100.0); MEAN PLATELET VOLUME 10.1 fL (7.4-10.4); MONOCYTES 11.1 % (2-11); NEUTROPHILS 71.7 % (40-80); PLATELET COUNT 157 10x3/uL (130-400); RBC 3.73 10x6/uL (4.00-5.40); RDW 16.6 % (11.5-14.5)
[2018-05-18 06:47] LABS: ALBUMIN 2.7 g/dL (3.4-5.0); ALKALINE PHOSPHATASE 49 U/L (46-116); BILIRUBIN - TOTAL 0.41 mg/dL (0.2-1.3); CALCIUM 8.1 mg/dL (8.5-10.1); CARBON DIOXIDE 27.4 mmol/L (21.0-32.0); CHLORIDE - SERUM 106 mmol/L (98-107); CREATININE - SERUM 0.7 mg/dL (0.6-1.3); POTASSIUM - SERUM 3.7 mmol/L (3.5-5.1); PROTEIN - SERUM 6.1 g/dL (6.4-8.2); SODIUM 142 mmol/L (136-145); eGFR NON AFRICAN AMERICAN 87 mL/min (90-120)
[2018-05-18 06:51] LABS: ALT (SGPT) 24 U/L (10-68); CALC OSMOLALITY 281 mosm/kg (275-300); GLUCOSE 102 mg/dL (74-106); UREA NITROGEN 11 mg/dL (7-18)
[2018-05-18 12:19] VITALS: BP 113/66
[2018-05-18 16:00] VITALS: BP 112/54
[2018-05-18 20:00] VITALS: BP 99/44
[2018-05-19 05:49] VITALS: BP 118/60
[2018-05-19 08:20] VITALS: BP 111/56
[2018-05-19 13:16] VITALS: BP 127/64
[2018-05-19 17:05] VITALS: BP 113/47
[2018-05-19 20:35] VITALS: BP 129/62
[2018-05-20 01:28] VITALS: BP 114/50
[2018-05-20 04:19] VITALS: BP 111/54
[2018-05-20 08:20] VITALS: BP 117/47
[2018-05-20 12:16] VITALS: BP 119/74
[2018-05-20 16:33] VITALS: BP 113/68
[2018-05-20 21:22] VITALS: BP 122/68
[2018-05-21 04:16] VITALS: BP 134/74
[2018-05-21 06:09] LABS: BASOPHILS 0.3 % (0-2); EOSINOPHILS 6.6 % (0-7); HEMATOCRIT 31.1 % (36.0-48.0); HEMOGLOBIN 9.6 g/dL (12-16); IMMATURE GRANULOCYTES 4.8 % (0-5); LYMPHOCYTES 25.6 % (15-50); MCH 27.9 pg (26.0-34.0); MCHC 30.9 g/dL (31.0-37.0); MCV 90.4 fL (80.0-100.0); MEAN PLATELET VOLUME 9.7 fL (7.4-10.4); MONOCYTES 11.2 % (2-11); NEUTROPHILS 51.5 % (40-80); RBC 3.44 10x6/uL (4.00-5.40); WBC 3.9 10x3/uL (4.8-10.8)
[2018-05-21 06:30] LABS: PLATELET COUNT 198 10x3/uL (130-400)
[2018-05-21 06:39] LABS: CALC OSMOLALITY 286 mosm/kg (275-300); CALCIUM 8.4 mg/dL (8.5-10.1); CARBON DIOXIDE 32.3 mmol/L (21.0-32.0); CHLORIDE - SERUM 108 mmol/L (98-107); CREATININE - SERUM 0.5 mg/dL (0.6-1.3); GLUCOSE 94 mg/dL (74-106); POTASSIUM - SERUM 4.1 mmol/L (3.5-5.1); SODIUM 145 mmol/L (136-145); UREA NITROGEN 7 mg/dL (7-18); eGFR NON AFRICAN AMERICAN > 90 mL/min (90-120)
[2018-05-21 09:42] VITALS: BP 122/62
[2018-05-21] MEDS ORDERED: VANCOMYCIN 1 GM/1 G1 IV (09:52)
[2018-05-21 15:09] VITALS: BP 113/39
[2018-05-21 17:29] VITALS: BP 121/58
== END 2018-05-21 18:55 | DRG 857 ==
LOC: D.MS 21:26
PROVIDERS: Family Medicine; Family Medicine Adult Medicine; Neurological Surgery
PROC: 01NB0ZZ Release Lumbar Nerve, Open Approach (ICD-10-PCS; principal; 2018-05-16 10:00)
DX: T81.4XXA Infection following a procedure, initial encounter (principal); C83.30 Diffuse large B-cell lymphoma, unspecified site; C78.7 Secondary malignant neoplasm of liver and intrahepatic bile duct; G96.19 Other disorders of meninges, not elsewhere classified; Y83.8 Other surgical procedures as the cause of abnormal reaction of the patient, or of later complication, without mention of misadventure at the time of the procedure; J45.909 Unspecified asthma, uncomplicated; I10 Essential (primary) hypertension; F41.9 Anxiety disorder, unspecified; F32.9 Major depressive disorder, single episode, unspecified; G62.9 Polyneuropathy, unspecified; B95.62 Methicillin resistant Staphylococcus aureus infection as the cause of diseases classified elsewhere; B95.7 Other staphylococcus as the cause of diseases classified elsewhere

== ENCOUNTER 2018-05-21 15:51 | Inpatient (IN) | payer MEDICARE ==
[~2018-05-21] VITALS: Ht 162.6 cm; Wt 59.0 kg
--- NOTE | ~2018-05-21 | RHP ---
PATIENT: BARTOLO TAFOYA MEDICAL RECORD: [id number] ACCOUNT: [id number] LOCATION:[facility]1116 : 44 ADMISSION DATE: 05/21/18 REHABILITATION HISTORY AND PHYSICAL EXAMINATION POST ADMISSION PHYSICIAN EXAMINATION DATE OF ADMISSION: 05/21/2018 ADMITTING DIAGNOSIS: Disuse myopathy. HISTORY OF PRESENT ILLNESS: The patient admitted to inpatient rehab for a neurological condition disuse myopathy. She is a 72-year-old female patient who had an extended stay secondary to postop complications of a left lumbar laminectomy for left foot radiculopathy approximately 5 weeks ago. Three days after surgery, she developed right foot drop. Postoperative MRI showed severe stenosis at L4-L5. She was taken back to surgery for lumbar laminectomy and sublaminar decompression to relieve her right L4-L5 stenosis. She had gradual improvement in her radicular pain postoperatively and she was transferred to rehab after a 10-day stay in the rehab, she developed fever and reported drainage from her lumbar wound. She did complain of severe pain and continued to have right foot drop. She was transferred back to acute hospital. MRI showed a possible abscess and epidural mass associated with radiculopathy with foot drop. She was taken back to the OR on 05/16/2018 for an I&D of the noted area. Cultures were obtained from the drained area that grew out MRSA and coagulase-negative Staph. She states that her pain is much relieved that her right foot drop is much better and she is now able to move her right foot, slightly proximal weakness with difficulty rising from bed to chair is noted. Barriers to discharge home including elderly , they live at home together. She is requiring IV therapy and contact isolation, wound care and increased oxygen use, increased pain, current weakness and debility, and self-care deficit, she was independent with no use of an assistive device for mobility and was independent with ADLs, only using a shower bench for bathing prior to extended hospitalization. She is currently sit up for mod assist for ADLs and mod assist for mobility. She and her planning her returning home hopefully at her prior level of functioning prior to her last admission. COMORBIDITIES: Include MRSA fluid from spinal wound, acute intractable back pain, lumbar epidural mass, asthma, status post lumbar laminectomy, intractable pain, paresthesias, weakness to the right foot, numbness to the right foot, liver mets, pelvic mass, neuropathy, COPD, asthma - home O2 use, history of CVA, numbness, fatigue, generalized weakness, vertigo, stress incontinence, depression, anxiety, osteoporosis, and gastroesophageal reflux disease. PAST MEDICAL HISTORY: CVA, numbness, weakness, vertigo, asthma, home O2 use, hypertension, arthritis, spinal stenosis, stress incontinence, menopause, history of UTI, depression, anxiety, melanoma of the nose, and non-Hodgkin's lymphoma. PAST SURGICAL HISTORY: and nose surgery, knee surgery, laminectomy times 2, and kyphoplasty. ALLERGIES: No known drug allergies. HISTORY AND PHYSICAL [id number] BARTOLO TAFOYA CURRENT MEDICATIONS: Include vancomycin 1 gram q. 12 hours, Zoloft 100 mg daily. She is on potassium 20 mEq daily, polyethylene glycol 17 grams in 8 ounces of water daily, Floranex 460 mg daily, Voltaren gel to apply q.i.d., Advair two puffs b.i.d. She is on Percocet 10/325 one tab q. 4 hours p.r.n., Robaxin 500 mg at bedtime, melatonin 3 mg at bedtime, Imodium 2 mg q. 6 hours p.r.n. loose stools, Neurontin 300 mg b.i.d., Klonopin 0.5 mg b.i.d., and acetaminophen 500 mg every 4 hours p.r.n. HABITS: No current alcohol or tobacco use. FAMILY HISTORY: Noncontributory. SOCIAL HISTORY: The patient hopes to return back home with her . REVIEW OF SYSTEMS: GENERAL: Does complain of weakness but is much improved. HEENT: Denies cold, cough or congestion. CARDIOVASCULAR: She denied chest pain. PHYSICAL EXAMINATION: VITAL SIGNS: Stable, afebrile. GENERAL: A thin female in no acute distress, alert upon exam. HEENT: Normocephalic and atraumatic. Mucosa moist. NECK: Supple with no lymphadenopathy. LUNGS: Clear at this time. HEART: Regular rate and rhythm. ABDOMEN: Benign. EXTREMITIES: No clubbing, cyanosis or edema. NEUROLOGIC: She does have still a little bit of foot drop on that right side. She does have some noted weakness. SKIN: Areas looked pretty good. LABORATORY DATA: Her white count 4.0, H&H 9 and 29, and platelet count was noted to be 235. Sodium 143, potassium 3.8, BUN and creatinine of 8 and 0.6, and blood sugar is noted to be 90. ASSESSMENT: This is a 72-year-old female patient who was admitted to rehab with a working diagnosis of disuse myopathy secondary to prolonged hospital stay secondary to multiple back surgeries and also infection. The patient is potential to make improvement. We instituted the following multidisciplinary therapies including but not limited to physical, occupational, respiratory, speech, nutritional services, prosthetics, and orthotics. Given her complex medical condition and risks for more complications, rehabilitation services cannot be provided at the low level of care such as a skilled nurse facility. PLAN: 1. Admit to [facility] for intensive inpatient therapy to include the following disciplines: A. Physical therapy to improve gait, all transfer skills and bed mobility to a modified independent level. B. Occupational therapy to improve activities of daily living to a modified independent level. HISTORY AND PHYSICAL [id number] BARTOLO TAFOYA. Case management to assist with discharge planning and placement options. D. Nutrition to assist with nutritional needs. E. Rehabilitation nursing to assist in monitoring the patient's underlying medical conditions and to assist with any type of bowel or bladder management. 2. The patient's current medication and medical care will be continued. 3. Will be placed on standard fall precautions. 4. The patient's estimated length of stay is approximately 7-10 days. 5. We will discuss this patient during care team staff meeting this week. Continue on IV antibiotics and will get an AFO with necessary. TRANSINT:[id number] Voice Confirmation ID: [id number] DOCUMENT ID: [id number] KARIS notes whether there has been none or any medical/functional change since admission: - No change since prescreen. KARIS attests patient continues to be appropriate for IRF: - Continues to be appropriate. DAX KAM MD at 0819 CC: [id number] DICTATION DATE: 05/22/18 0856 MILLER HELPER DISTILLERY: 05/22/18 1044 ADM IN [facility] [address] [place] [address]
[~2018-05-21 15:51] MED LIST changes: +CLEOCIN HCL150 MG PO; +FLORAJEN3 CAPS460 MG PO; +IMODIUM2 MG PO; +KLONOPIN0.5 MG PO; +MIRALAX17 GM PO; +VANCOMYCIN 1 GM/1 G1 IV
[2018-05-22 00:17] VITALS: BP 95/65; BMI 22.3
[2018-05-22 05:49] LABS: BASOPHILS 0.2 % (0-2); HEMATOCRIT 29.2 % (36.0-48.0); LYMPHOCYTES 28.9 % (15-50); MCH 27.8 pg (26.0-34.0); MCHC 30.8 g/dL (31.0-37.0); MCV 90.1 fL (80.0-100.0); MEAN PLATELET VOLUME 10.2 fL (7.4-10.4); MONOCYTES 10.4 % (2-11); NEUTROPHILS 47.5 % (40-80); PLATELET COUNT 235 10x3/uL (130-400); RBC 3.24 10x6/uL (4.00-5.40); RDW 15.9 % (11.5-14.5)
[2018-05-22 06:14] LABS: CALC OSMOLALITY 282 mosm/kg (275-300); CALCIUM 8.4 mg/dL (8.5-10.1); CARBON DIOXIDE 33.4 mmol/L (21.0-32.0); CHLORIDE - SERUM 106 mmol/L (98-107); CREATININE - SERUM 0.6 mg/dL (0.6-1.3); GLUCOSE 90 mg/dL (74-106); POTASSIUM - SERUM 3.8 mmol/L (3.5-5.1); SODIUM 143 mmol/L (136-145); UREA NITROGEN 8 mg/dL (7-18); eGFR NON AFRICAN AMERICAN > 90 mL/min (90-120)
[2018-05-22 08:04] VITALS: BP 108/64
[2018-05-22 13:58] VITALS: Ht 162.6 cm; Wt 59.0 kg
[2018-05-22 18:00] VITALS: BP 123/53
[2018-05-23 06:36] LABS: BASOPHILS 0.4 % (0-2); EOSINOPHILS 5.8 % (0-7); HEMATOCRIT 30.8 % (36.0-48.0); HEMOGLOBIN 9.4 g/dL (12-16); IMMATURE GRANULOCYTES 5.8 % (0-5); LYMPHOCYTES 23.4 % (15-50); MCH 27.5 pg (26.0-34.0); MCHC 30.5 g/dL (31.0-37.0); MCV 90.1 fL (80.0-100.0); MEAN PLATELET VOLUME 9.7 fL (7.4-10.4); MONOCYTES 9.4 % (2-11); NEUTROPHILS 55.2 % (40-80); PLATELET COUNT 248 10x3/uL (130-400); RBC 3.42 10x6/uL (4.00-5.40); RDW 15.8 % (11.5-14.5); WBC 4.5 10x3/uL (4.8-10.8)
[2018-05-23 06:46] LABS: CALC OSMOLALITY 283 mosm/kg (275-300); CALCIUM 8.8 mg/dL (8.5-10.1); CARBON DIOXIDE 33.5 mmol/L (21.0-32.0); CHLORIDE - SERUM 107 mmol/L (98-107); CREATININE - SERUM 0.7 mg/dL (0.6-1.3); GLUCOSE 99 mg/dL (74-106); POTASSIUM - SERUM 3.9 mmol/L (3.5-5.1); SODIUM 143 mmol/L (136-145); UREA NITROGEN 10 mg/dL (7-18); eGFR NON AFRICAN AMERICAN 87 mL/min (90-120)
[2018-05-23 08:13] VITALS: BP 119/55
[2018-05-23 18:00] VITALS: BP 112/55
[2018-05-24 08:00] VITALS: BP 147/63
[2018-05-24 20:00] VITALS: BP 154/78
[2018-05-25 09:02] VITALS: BP 108/89
[2018-05-26 06:14] LABS: BASOPHILS 0.5 % (0-2); EOSINOPHILS 5.4 % (0-7); HEMATOCRIT 35.1 % (36.0-48.0); HEMOGLOBIN 10.8 g/dL (12-16); IMMATURE GRANULOCYTES 5.6 % (0-5); LYMPHOCYTES 22.7 % (15-50); MCH 27.9 pg (26.0-34.0); MCHC 30.8 g/dL (31.0-37.0); MCV 90.7 fL (80.0-100.0); MEAN PLATELET VOLUME 9.7 fL (7.4-10.4); NEUTROPHILS 56.8 % (40-80); RBC 3.87 10x6/uL (4.00-5.40); WBC 5.8 10x3/uL (4.8-10.8)
[2018-05-26 06:17] LABS: PLATELET COUNT 318 10x3/uL (130-400)
[2018-05-26 06:26] LABS: CALC OSMOLALITY 289 mosm/kg (275-300); CALCIUM 8.8 mg/dL (8.5-10.1); CARBON DIOXIDE 32.7 mmol/L (21.0-32.0); CHLORIDE - SERUM 106 mmol/L (98-107); CREATININE - SERUM 0.7 mg/dL (0.6-1.3); GLUCOSE 92 mg/dL (74-106); SODIUM 146 mmol/L (136-145); UREA NITROGEN 10 mg/dL (7-18); eGFR NON AFRICAN AMERICAN 87 mL/min (90-120)
[2018-05-26 08:00] VITALS: BP 111/60
[2018-05-26 20:00] VITALS: BP 137/75
[2018-05-27 08:00] VITALS: BP 143/59
[2018-05-27 19:00] VITALS: BP 109/73
[2018-05-28 06:28] LABS: BASOPHILS 0.6 % (0-2); EOSINOPHILS 5.4 % (0-7); HEMATOCRIT 33.6 % (36.0-48.0); HEMOGLOBIN 10.3 g/dL (12-16); IMMATURE GRANULOCYTES 7.2 % (0-5); LYMPHOCYTES 28.7 % (15-50); MCH 27.8 pg (26.0-34.0); MCHC 30.7 g/dL (31.0-37.0); MCV 90.6 fL (80.0-100.0); MEAN PLATELET VOLUME 10.4 fL (7.4-10.4); MONOCYTES 12.4 % (2-11); NEUTROPHILS 45.7 % (40-80); PLATELET COUNT 301 10x3/uL (130-400); RBC 3.71 10x6/uL (4.00-5.40); WBC 5.4 10x3/uL (4.8-10.8)
[2018-05-28 06:39] LABS: CALC OSMOLALITY 287 mosm/kg (275-300); CALCIUM 8.7 mg/dL (8.5-10.1); CARBON DIOXIDE 33.8 mmol/L (21.0-32.0); CHLORIDE - SERUM 106 mmol/L (98-107); CREATININE - SERUM 0.7 mg/dL (0.6-1.3); GLUCOSE 89 mg/dL (74-106); POTASSIUM - SERUM 4.2 mmol/L (3.5-5.1); SODIUM 145 mmol/L (136-145); UREA NITROGEN 12 mg/dL (7-18); eGFR NON AFRICAN AMERICAN 87 mL/min (90-120)
[2018-05-28 08:00] VITALS: BP 113/58
[2018-05-28 19:00] VITALS: BP 112/80
[2018-05-29 07:53] VITALS: BP 107/62
[2018-05-29 19:00] VITALS: BP 108/51; BP 146/58
[2018-05-30 07:23] LABS: CALC OSMOLALITY 284 mosm/kg (275-300); CALCIUM 8.6 mg/dL (8.5-10.1); CARBON DIOXIDE 31.6 mmol/L (21.0-32.0); CHLORIDE - SERUM 106 mmol/L (98-107); CREATININE - SERUM 0.6 mg/dL (0.6-1.3); GLUCOSE 101 mg/dL (74-106); SODIUM 143 mmol/L (136-145); UREA NITROGEN 13 mg/dL (7-18); eGFR NON AFRICAN AMERICAN > 90 mL/min (90-120)
[2018-05-30 07:58] VITALS: BP 109/61
[2018-05-30 08:01] LABS: BASOPHILS 0.5 % (0-2); EOSINOPHILS 2.7 % (0-7); HEMATOCRIT 34.4 % (36.0-48.0); HEMOGLOBIN 10.6 g/dL (12-16); IMMATURE GRANULOCYTES 4.8 % (0-5); MCH 27.5 pg (26.0-34.0); MCHC 30.8 g/dL (31.0-37.0); MCV 89.1 fL (80.0-100.0); MEAN PLATELET VOLUME 10.4 fL (7.4-10.4); MONOCYTES 11.3 % (2-11); NEUTROPHILS 54.7 % (40-80); PLATELET COUNT 305 10x3/uL (130-400); RBC 3.86 10x6/uL (4.00-5.40); RDW 15.8 % (11.5-14.5); WBC 5.9 10x3/uL (4.8-10.8)
[2018-05-30 18:00] VITALS: BP 99/66
[2018-05-31 08:00] VITALS: BP 118/63
[2018-05-31 19:29] VITALS: BP 137/53
[2018-06-01 08:00] VITALS: BP 112/61
[2018-06-01 21:54] VITALS: BP 128/77
[2018-06-02 05:27] LABS: BASOPHILS 0.5 % (0-2); EOSINOPHILS 2.4 % (0-7); HEMATOCRIT 34.5 % (36.0-48.0); HEMOGLOBIN 10.6 g/dL (12-16); IMMATURE GRANULOCYTES 2.5 % (0-5); LYMPHOCYTES 23.3 % (15-50); MCH 27.2 pg (26.0-34.0); MCHC 30.7 g/dL (31.0-37.0); MCV 88.7 fL (80.0-100.0); MEAN PLATELET VOLUME 10.4 fL (7.4-10.4); MONOCYTES 11.6 % (2-11); NEUTROPHILS 59.7 % (40-80); PLATELET COUNT 271 10x3/uL (130-400); RBC 3.89 10x6/uL (4.00-5.40); RDW 15.7 % (11.5-14.5); WBC 5.9 10x3/uL (4.8-10.8)
[2018-06-02 05:39] LABS: CALC OSMOLALITY 282 mosm/kg (275-300); CALCIUM 8.7 mg/dL (8.5-10.1); CHLORIDE - SERUM 106 mmol/L (98-107); CREATININE - SERUM 0.6 mg/dL (0.6-1.3); GLUCOSE 94 mg/dL (74-106); POTASSIUM - SERUM 4.1 mmol/L (3.5-5.1); SODIUM 142 mmol/L (136-145); UREA NITROGEN 12 mg/dL (7-18); eGFR NON AFRICAN AMERICAN > 90 mL/min (90-120)
[2018-06-02] MEDS ORDERED: PERCOCET 10/3251 TA1 PO (08:20)
[2018-06-02 09:11] VITALS: BP 121/60
[2018-06-02 18:00] VITALS: BP 128/63
[2018-06-03 07:47] VITALS: BP 125/68
== END 2018-06-03 12:30 | disposition home or self-care (01) | DRG 93 ==
LOC: D.REHAB 15:51
PROVIDERS: Emergency Medicine
DX: G72.89 Other specified myopathies (principal); A49.02 Methicillin resistant Staphylococcus aureus infection, unspecified site; J45.909 Unspecified asthma, uncomplicated; R22.2 Localized swelling, mass and lump, trunk; J44.9 Chronic obstructive pulmonary disease, unspecified; G62.9 Polyneuropathy, unspecified; K21.9 Gastro-esophageal reflux disease without esophagitis; M81.0 Age-related osteoporosis without current pathological fracture; R53.1 Weakness; R20.2 Paresthesia of skin; R20.0 Anesthesia of skin; R53.83 Other fatigue; N39.3 Stress incontinence (female) (male); R42 Dizziness and giddiness; F41.8 Other specified anxiety disorders; R53.81 Other malaise; M54.9 Dorsalgia, unspecified

== ENCOUNTER → 2018-07-31 16:34 | Outpatient (CLI) | payer MEDICARE ==
[2018-05-22 13:58] VITALS: BMI 22.3
== END | disposition home or self-care (01) ==
LOC: D.MAMMO 13:00
DX: Z12.31 Encounter for screening mammogram for malignant neoplasm of breast (principal)

== ENCOUNTER 2019-01-15 05:12 | Day surgery (SDC) | payer MEDICARE ==
[~2019-01-15] VITALS: Ht 162.6 cm; Wt 63.5 kg
--- NOTE | ~2019-01-15 | OP ---
PATIENT NAME: BARTOLO TAFOYA MEDICAL RECORD: [id number] :43 LOCATION:D.OPS ADMISSION DATE: SURGEON: ARETHA NAIK MD DATE OF OPERATION: 01/15/2019 PREOPERATIVE DIAGNOSES: Lumbar spinal stenosis at left L3-4 and L4-L5 epidural fluid collection. PROCEDURES: 1. Lumbar laminectomy, medial facetectomy and foraminotomy at L3-L4 and L4-L5 on the left with resection of cicatrix. 2. Exploration of the left L3 and L4 nerve roots. PRIMARY CARE DOCTOR: Dr. Snow. SURGEON: Aretha Naik MD DESCRIPTION OF THE TECHNIQUE: After induction of general endotracheal anesthesia, the patient was rolled prone on a Huey frame. Lumbar spine was prepped and draped in the usual sterile fashion. Fluoroscopic x-ray and spinal needle localized at the L3-L4 interspace on the left side. After infiltration of 1:100,000 epinephrine and 1% lidocaine, a skin incision was carried out from the spinous process of L3-L5. Using Bovie cautery, the spinous processes and lamina of L3, L4, and L5 were exposed in a subperiosteal manner on the left side. In the course of this, the scar tissue from the previous operation was removed with carotid rongeurs and the plane between the dura and the scar tissue was defined with microdissection. L3-L4 interspace was confirmed with fluoroscopic x-ray and a nerve hook. Next dissection under microscope took place with Cloward rongeurs to define the L3, L4 and L5 nerve roots. These were from scar tissue from previous operation. The scar tissue was sent to pathology for diagnosis and culture and appeared to be only scar tissue and with no infectious process involved. Meticulous hemostasis was maintained throughout the wound. Wound was irrigated with copious amounts of Ancef irrigant solution. The fascia was closed with 2-0 Vicryl suture, the subdermal layer was closed with 3-0 Vicryl suture. The skin was closed with mulu. A sterile dressing was applied to the wound. The patient was awakened in good condition and taken to the recovery. All counts were reported as correct. Estimated blood loss was minimal. TRANSINT:[id number] Voice Confirmation ID: [id number] DOCUMENT ID: [id number] OPERATIVE REPORT [id number] BARTOLO TAFOYA ARETHA NAIK MD CC: [id number] DICTATION DATE: 02/04/192139 INSIDE SALES PERSON: 02/05/[address] [facility] 01/15/19 [place] [id number] [place] [id number]
[~2019-01-15 05:12] MED LIST changes: +CYMBALTA30 MG PO; -KLONOPIN0.5 MG PO
[2019-01-15 05:53] LABS: BASOPHILS 0.6 % (0-2); EOSINOPHILS 3.1 % (0-7); HEMATOCRIT 42.7 % (36.0-48.0); HEMOGLOBIN 13.2 g/dL (12-16); IMMATURE GRANULOCYTES 0.6 % (0-5); LYMPHOCYTES 29.6 % (15-50); MCH 26.7 pg (26.0-34.0); MCHC 30.9 g/dL (31.0-37.0); MCV 86.3 fL (80.0-100.0); MEAN PLATELET VOLUME 10.4 fL (7.4-10.4); MONOCYTES 10.3 % (2-11); NEUTROPHILS 55.8 % (40-80); RBC 4.95 10x6/uL (4.00-5.40); RDW 15.2 % (11.5-14.5); WBC 5.4 10x3/uL (4.8-10.8)
[2019-01-15 05:55] LABS: PLATELET COUNT 190 10x3/uL (130-400)
[2019-01-15 06:00] LABS: INR 0.95 (0.85-1.17); PROTIME 12.2 SECONDS (11.6-15.0)
[2019-01-15 06:06] LABS: CALC OSMOLALITY 283 mosm/kg (275-300); CALCIUM 8.6 mg/dL (8.5-10.1); CHLORIDE - SERUM 104 mmol/L (98-107); CREATININE - SERUM 0.7 mg/dL (0.6-1.3); GLUCOSE 107 mg/dL (74-106); POTASSIUM - SERUM 3.8 mmol/L (3.5-5.1); SODIUM 143 mmol/L (136-145); UREA NITROGEN 11 mg/dL (7-18); eGFR NON AFRICAN AMERICAN 87 mL/min (90-120)
[2019-01-15 06:38] VITALS: BP 142/79; Ht 162.6 cm; Wt 63.5 kg
--- NOTE | 2019-01-15 14:00 | NUR ---
PATIENT SITTING UP IN BED, CONSUMING FULL LIQUID DIET. DENIES COMPLAINTS. NO MORE DRAINAGE SEEN ON LUMBAR DRESSING
--- NOTE | 2019-01-15 14:20 | NUR ---
PATIENT AMBULATING AROUND ROOM WITHOUT UNSTEADINESS. RIGHT WRIST PIV DC'D WITH TIP INTACT. PATIENT ASSISTED TO DRESS IN PERSONAL CLOTHING
[2019-01-15] MEDS ORDERED: HYDROCODON-ACE1 EA10 PO (14:29)
--- NOTE | 2019-01-15 14:45 | NUR ---
DISCHARGE INSTRUCTIONS REVIEWED WITH PATIENT, DISCHARGED HOME VIA WHEELCHAIR TO PRIVATE VEHICLE WITH SPOUSE
== END 2019-01-15 14:45 | disposition home or self-care (01) ==
LOC: D.OPS 05:12 → D.PAN 07:30 → D.OPS 07:30
PROVIDERS: Anesthesiology; ATTEND Neurological Surgery
DX: M48.061 Spinal stenosis, lumbar region without neurogenic claudication (principal)